=== PATIENT | male | born 1975 | race Caucasian/White ===

== ENCOUNTER 2016-12-13 09:28 | Emergency (ER) | payer SELFPAY ==
--- NOTE | 2016-12-13 10:39 | ERNOTE ---
Date of Service: 12/13/16 Time Seen by Provider: 12/13/16 10:18 Stated Complaint: COLD Presenting Symptoms:: cough, sore throat, runny nose, fever Source: patient, family Exam Limitations: no limitations Immunizations: IMMUNIZATION HX Immunizations Up to Date Yes History of Influenza Vaccine No Hx Pneumococcal Vaccination No Allergies/Adverse Reactions: Allergies No Known Allergies Allergy (Verified 12/13/16 10:12) Home Medications: HOME MEDICATIONS NK [No Home Medication] 02/23/16 [Last Taken Unknown] - History of Present Ilness Narrative: Pt. comes in with c/o sinus congestion, rhinorrhea, sore throat, cough, and fever intermittently for two weeks. Pt. denies any SOB, CP, NVD, or alleviating factors. Pt. states that he was ill with similar symptoms two weeks ago but it resolved and returned on Tuesday. Pt. is a smoker and states that cold weather, smoking and night time exacerbate the symptoms. Pt. states that he has tried dione selter plus cold without relief of symptoms. Review of Systems - Review of Systems Constitutional: Present: no symptoms reported. Absent: recent illness, fever, chills, weakness, fatigue, malaise EYE: Present: no symptoms reported ENT: Present: nose pain, nose congestion, nasal drainage, sore throat. Absent: ear pain Respiratory: Present: no symptoms reported. Absent: shortness of breath, cough , wheezing Cardiology: Present: no symptoms reported. Absent: chest pain, palpitations, edema Gastrointestinal/Abdominal: Present: no symptoms reported. Absent: nausea, vomiting, diarrhea Genitourinary: Present: no symptoms reported. Absent: frequency, decreased urinary output Musculoskeletal: Present: no symptoms reported. Absent: back pain, joint pain Skin: Present: no symptoms reported. Absent: rash, change in color Neurological: Present: no symptoms reported. Absent: headache, dizziness/light- headedness, weakness, numbness, tingling All Other Systems: All systems neg except as marked - Patient's Past Medical History Patient History - Medical: No pertinent hx Patient History - Cardiac/Respiratory: No pertinent hx Patient History - Cancer: No Hx of Cancer Patient History - Surgical Procedures: No surgical history - Social History Living Situations: spouse Smoking Status: Current every day smoker Have you smoked in the past 12 months: Yes Do you dip or chew tobacco: No Patient requests Smoking Cessation Consult: No Initiate information on Smoking Cessation: No Alcohol Use: heavy Drug Use: none Physical Exam - Physical Exam General Appearance: Present: wd/wn, alert, no apparent distress Eye Exam: Normal inspection: bilateral, PERRL: bilateral, EOMI: bilateral Ears, Nose, Throat: Present: hearing grossly normal, nasal congestion, sinus pain/drainage, pharyngeal erythema, tonsillar exudate Neck: Present: normal inspection, nontender. Absent: lymphadenopathy (R), lymphadenopathy (L) Respiratory: Present: no respiratory distress, normal breath sounds, no accessory muscle use, chest nontender, lungs clear Cardiovascular/Chest: Present: regular rate, rhythm, no murmur, normal peripheral pulses Gastrointestinal/Abdominal: Present: normal bowel sounds, nontender, nondistended, soft, no organomegaly Back Exam: Present: normal inspection, normal range of motion, no CVA tenderness , no vertebral tenderness. Absent: decreased range of motion Extremity Exam: Present: normal inspection, non-tender, no edema, normal range of motion Neurological Exam: Present: alert, oriented, normal mood/affect, no motor/ sensory deficits Skin Exam: Present: normal color, warm/dry. Absent: pallor, skin rash ED Progress - Results and Orders Patient's Lab Results:: I have reviewed the patient's lab results. - Vital Signs Patient's Vital Signs:: I have reviewed the patient's vital signs. Vital Signs: Vital Signs 12/13/16 10:06 Temperature 36.7 C Pulse Rate 88 Respiratory 16 Rate Blood Pressure 146/83 O2 Sat by Pulse 98 Oximetry - Progress/Reassessment Chief Complaint: Upper Respiratory Symptoms Departure - Departure Clinical Impression: Upper respiratory infection Qualifiers: URI type: unspecified viral URI Qualified Code(s): J06.9 - Acute upper respiratory infection, unspecified; B97.89 - Other viral agents as the cause of diseases classified elsewhere Disposition: Home self-care Condition: Good Instructions: Upper Respiratory Infection, Adult, [id number], Form - Excuse from Work, School, or Physical Activity Additional Instructions: Please follow up with primary provider in 2-3 days
[2016-12-13 12:25] VITALS: BP 142/80
== END 2016-12-13 12:25 | disposition home or self-care (01) ==
LOC: ER 09:28
DX: J06.9 Acute upper respiratory infection, unspecified (principal); B97.89 Other viral agents as the cause of diseases classified elsewhere; F17.210 Nicotine dependence, cigarettes, uncomplicated

== ENCOUNTER 2017-05-29 18:01 | Emergency (ER) | payer MEDICAID ==
--- NOTE | 2017-05-29 19:05 | ERNOTE ---
Back Pain ER HPI Date of Service: 05/29/17 Presenting Symptoms: injury/pain to back Time Seen by Provider: 05/29/17 18:44 Source: patient, family Exam Limitations: no limitations Immunizations: IMMUNIZATION HX Immunizations Up to Date Yes History of Influenza Vaccine No Hx Pneumococcal Vaccination No Allergies/Adverse Reactions: Allergies No Known Allergies Allergy (Verified 12/13/16 10:12) Home Medications: HOME MEDICATIONS HYDROcodone/ACETAMINOPHEN [[place] 5-325] 1 each PO Q6H PRN #12 tablet 05/29/17 [ Last Taken Unknown] Narrative: Is a 42-year-old male who was having intercourse and . He is states that during one of his thrusts, he felt 3 pops in his back. The patient states that afterwards he felt a little bit of a "funny feeling" in his back. He had no significant pain or difficulty walking. The next day he started having some mild stiffness and pain in his back however he went to work where he was bending over and lifting. The patient states that over the last 24-48 hours the pain has become severe. It is located primarily in his lower buttock and radiates around to the posterior right thigh and medial right thigh. It seems to involve a bit of the medial anterior thigh as well. He reports that he has no pain below the knee. He has not had any incontinence of urine or stool. The patient is able to walk. He has noticed some twitching of the muscles in his thigh. Timing: Reports: getting worse Quality/Severity: Reports: severe, aching, stabbing Location of pain: Reports: lower back, radiating to lf thigh/leg Activities at Onset: Reports: activity Recent Injury?: Reports: possibly Modifying Factors - (Worsens): Reports: nothing Associated Symptoms: Reports: none Prior Treament: Denies: recently seen, treated by physician Review of Systems - Narrative Narrative: Except as above the remainder of the review of systems is otherwise negative - Review of Systems Constitutional: Present: no symptoms reported EYE: Present: no symptoms reported ENT: Present: no symptoms reported Respiratory: Present: no symptoms reported Cardiology: Present: no symptoms reported Gastrointestinal/Abdominal: Present: no symptoms reported Genitourinary: Present: no symptoms reported Musculoskeletal: Present: back pain, joint pain, other - right hip. Absent: no symptoms reported Skin: Present: no symptoms reported Neurological: Present: no symptoms reported Endocrine: Present: no symptoms reported Hematologic/Lymphatic: Present: no symptoms reported Psych: Present: no symptoms reported All Other Systems: All systems neg except as marked - Patient's Past Medical History Patient History - Medical: No pertinent hx Patient History - Cardiac/Respiratory: Hypertension Patient History - Cancer: No Hx of Cancer Patient History - Surgical Procedures: No surgical history Patient History - Other: None - Social History Living Situations: home Abuse History: Hx of Substance Use Psych History: No pertinent hx Smoking Status: Current every day smoker Patient requests Smoking Cessation Consult: No Initiate information on Smoking Cessation: No Alcohol Use: heavy Drug Use: none - Immunizations Immunizations Up to Date: Yes Hx Pneumococcal Vaccination: No History of Influenza Vaccine: No Physical Exam - Physical Exam General Appearance: Present: wd/wn, alert, moderate distress, other - moderate distress due to pain Eye Exam: Normal inspection: bilateral, PERRL: bilateral, EOMI: bilateral Ears, Nose, Throat: Present: normal ENT inspection, normal except - Neck: Present: normal inspection, nontender Respiratory: Present: no respiratory distress, normal breath sounds, no accessory muscle use, chest nontender, lungs clear Cardiovascular/Chest: Present: regular rate, rhythm, no murmur, normal peripheral pulses Gastrointestinal/Abdominal: Present: normal bowel sounds, nontender, nondistended, soft, no organomegaly Male Genitals Exam: Present: normal genitalia, no hernia, other - no scrotal swelling, normal cremasteric reflex Back Exam: Present: normal inspection, no CVA tenderness, no vertebral tenderness, other - good range of motion with lateral flexion at the hip. Extremity Exam: Present: normal inspection, non-tender, normal range of motion, no edema Neurological Exam: Present: oriented, normal mood/affect, no motor/sensory deficits, other - has frequent fasciculations involving the right quadriceps and her vastus medialis DTR: N=norm/NB=norm/brisk/A=abs/DD=dull/dimin/HC=hyperactive: Knee (R): Normal, Knee (L): Normal ED Progress - Vital Signs Patient's Vital Signs:: I have reviewed the patient's vital signs. Vital Signs: Vital Signs 05/29/17 18:28 Temperature 37.1 C Pulse Rate 89 Respiratory 18 Rate Blood Pressure 143/93 O2 Sat by Pulse 98 Oximetry - X-Ray X-Ray #1 X-Ray: lumbosacral Interpretation: Interp. by me X-ray Comments: No fractures or dislocations are noted X-Ray #2 X-Ray: pelvis Interpretation: Interp. by me X-ray Comments: No fractures or dislocations are noted - Progress/Reassessment Chief Complaint: Back Pain Departure Clinical Impression: Lumbar strain - Departure Disposition: Home self-care Condition: Stable Instructions: Low Back Strain With Rehab-[facility] Additional Instructions: As we discussed, there is nothing broken or dislocated and the x-rays that I can see. His symptoms are very consistent with irritation of the ligaments that connects her spine to her pelvic bone. This should get better within a few days. I want you to take it very easy. Use ibuprofen, that Motrin or Advil , take 3 tablets every 6 hours. This for at least 5 days. Take the prescribed medicine, [place]. He can take 1 or 2 tablets every 6 hours. Do not exceed 8 tablets in 24 hours. No driving or operating machinery while taking this Use a heating pad. Try sleeping with a pillow between her knees. I want you to call your family doctor and set up a follow-up appointment. Certainly if he develops numbness, weakness, loss of control of her bladder or bowels, or any new worrisome symptoms she should return to the ER. Prescriptions: HYDROcodone/ACETAMINOPHEN [[place] 5-325] 1 each PO Q6H PRN #12 tablet PRN Reason: Pain
[2017-05-29] MEDS ORDERED: HYDROcodone/ACETAMINOPHEN 1 EACH TABLET PO ONE ×2 (20:19→20:38)
[2017-05-29] MEDS ORDERED: HYDROcodone/ACETAMINOPHEN 1 EACH TABLET ONE ×2 (20:20→20:59)
[2017-05-29 20:24] VITALS: BP 146/87
== END 2017-05-29 21:04 | disposition home or self-care (01) ==
LOC: ER 18:01
DX: S39.012A Strain of muscle, fascia and tendon of lower back, initial encounter (principal); S33.5XXA Sprain of ligaments of lumbar spine, initial encounter; I10 Essential (primary) hypertension; Z72.0 Tobacco use